=== PATIENT | female | born 1965 | race Hispanic/Latino ===

== ENCOUNTER → 2020-07-09 | Outpatient (CLI) | payer BC | END | disposition home or self-care (01) | LOC: RAH 09:40 | PROVIDERS: ATTEND Family Medicine | DX: Z12.31 Encounter for screening mammogram for malignant neoplasm of breast (principal); N64.89 Other specified disorders of breast | CPT/HCPCS: 77067 ==

== ENCOUNTER → 2022-10-17 | Outpatient (CLI) | payer OTHER | END | disposition home or self-care (01) | LOC: RAH 08:19 | PROVIDERS: ATTEND Family Medicine | DX: Z12.31 Encounter for screening mammogram for malignant neoplasm of breast (principal) | CPT/HCPCS: 77067 ==

== ENCOUNTER 2024-08-20 13:28 | Emergency (ER) | payer OTHER ==
[~2024-08-20] VITALS: Ht 147.3 cm; Wt 72.6 kg
[~2024-08-20 13:28] MED LIST: CYCL10TA16 PO; IBUP-2070 PO
[2024-08-20] MEDS: 0.9%NACL 1000ML 1,000 ML IV STA (14:26)
[2024-08-20] MEDS: FAMOTIDINE 20MG VIAL IV STA (14:26)
[2024-08-20] MEDS: DiphenhydrAMINE HCL 50 MG/ML VIAL IV STA (14:26)
[2024-08-20] MEDS: Solu-medROL 125MG VIAL IVP STA (14:27)
--- NOTE | 2024-08-20 14:35 | ERN ---
ED Note History of Present Illness Stated Complaint: INSECT BITE,RIGHT SIDE TINGLING,TROUBLE SWALLOWING Chief Complaint: Insect Bite Time Seen by MD: 13:39 Time Seen by Midlevel: 13:44 Dictation: 59-year-old female coming in with complaints of insect bite to the right 3rd digit. Patient states yesterday she woke up with that insect bite. States today he she feels like she is having trouble swallowing. She was able to follow her morning pills and eat a banana prior to arrival. And just wanted to be evaluated. Allergies: Coded Allergies: No Known Allergies (Unverified Allergy, Unknown, 03/25/24) Home Meds Active Scripts Cyclobenzaprine HCl (Flexeril) 10 Mg Tab, 10 MG PO TID for muscle sstiffness, #14 TAB 0 Refills Prov:GAUTAM LEE MD 03/26/24 Ibuprofen (Ibuprofen) 600 Mg Tablet, 600 MG PO Q6H PRN for PAIN, #15 TAB Prov:GAUTAM LEE MD 03/26/24 Past Medical History Past Medical History: Diabetes-Type II, Hypertension Surgical History: Appendectomy, Hysterectomy, Other Surgical History Other: COLON SX History: Not Applicable Review of System Dictation Constitutional: Negative for fever,chills, and weight loss Eyes: Negative for injury, pain,redness, and discharge ENT: Negative for injury,pain or swelling Cardiovascular: Negative for chest pain, palpitations, and edema Respiratory: Negative for shortness of breath, cough, and wheezing, Abdomen/GI: Negative for abdominal pain, nausea, vomiting, diarrhea, and constipation Back: Negative for injury and pain : Negative for injury, bleeding and discharge MS/Extremity: Negative for injury and deformity Skin: Negative for rash, and discoloration Neuro: Negative for headache, weakness, numbness, tingling, and seizure Psych: Negative for suicide ideation, homicidal ideation, and hallucinations Review of Systems: was completed Initial Vital Sign VS Vital Signs Date Time Temp Pulse Resp B/P (MAP) Pulse Ox O2 Delivery O2 Flow Rate FiO2 08/20/24 13:40 98.4 84 16 185/88 95 Room Air 0 08/20/24 13:46 21 Physical Exam Dictation General: awake, alert, NAD Head/Face: Normocephalic, atraumatic Eyes: PERRL, EOMI, vision at baseline ENT: oral cavity clear, TMs clear, no signs of infection Neck: Trachea midline, supple, no nuchal rigidity Cardiovascular: RRR, normal S1/S2, No MRGs, no JVD Respiratory: CTAB, no respiratory distress, No rales or wheezes Abdomen: Soft, non-tender, non-distended, normal bowel sounds, no guarding or rebound. Skin: Warm, dry, normal turgor, no rash insect bite noted to the base of the right 3rd digit MS/Extremity: Pulses equal, no cyanosis, neurovascular intact, FROM Neuro: COAx4, GCS 15, strength 5/5, CN 2-12 intact, normal cerebellar exam, normal gait, Psych: Normal behavior, mood, and affect normal ED Course ED Course Orders Procedure Category Date Status Time Methylprednisolone PHA 08/20/24 Complete Succ 125mg (Solu-Medr 14:00 Diphenhydramine Hcl PHA 08/20/24 Complete (Benadryl Inj) 14:00 Famotidine 20mg Vial PHA 08/20/24 Complete (Pepcid 20mg Vial) 14:00 0.9%Nacl 1000ml (Ns PHA 08/20/24 Complete 1000ml) 14:00 Current Medications Medications (Trade) Dose Ordered Sig/Candelario Route PRN Reason Start Time Stop Time Status Last Admin Dose Admin Diphenhydramine HCl (BENAdryl INJ) 25 mg ONCE STAT IV 08/20/24 14:00 08/20/24 14:03 DC 08/20/24 14:26 Famotidine (Pepcid 20mg Vial) 20 mg ONCE STAT IV 08/20/24 14:00 08/20/24 14:03 DC 08/20/24 14:26 Methylprednisolone Sodium Succinate (Solu-medROL 125MG) 125 mg ONCE STAT IVP 08/20/24 14:00 08/20/24 14:03 DC 08/20/24 14:27 Sodium Chloride 1,000 ml @ 1,000 mls/hr Q1H STAT IV 08/20/24 14:00 08/20/24 14:59 DC 08/20/24 14:26 Vital Signs Date Time Temp Pulse Resp B/P (MAP) Pulse Ox O2 Delivery O2 Flow Rate FiO2 08/20/24 15:32 98.4 80 16 157/74 97 Room Air* 0 21 08/20/24 13:46 98.4 84 16 185/88 95 Room Air* 0 21 08/20/24 13:40 98.4 84 16 185/88 95 Room Air 0 Medical Decision Making MDM MDM: 59-year-old female coming in with complaints of insect bite to the right 3rd digit. Patient states yesterday she woke up with that insect bite. States today he she feels like she is having trouble swallowing. She was able to follow her morning pills and eat a banana prior to arrival. And just wanted to be evaluated. After receiving Solu-Medrol, Benadryl, Pepcid and fluids patient states he feels much better and does not feel difficulty swallowing anymore. Discussed with the patient that I will discharge her with a steroid pack to take it home and follow up with PCP in 1-2 days and to return to the ER if symptoms worsen. Patient verbalized understanding, answered all questions. Differential diagnosis: Allergic reaction, cellulitis Rationale: Tests considered and ordered secondary to shared decision making include: Previous outside records reviewed: Old ER visits. Risk of complication and/or morbidity or mortality of patient management: None Medications-Per medication reconciliation Need for hospitalization: Patient does not meet criteria for hospitalization. Need for emergency major/minor surgery: No There are no social concerns with this patient. Prescription drug management Prescriptions will include symptomatic care Patient's prior external medical records from other ER visits were reviewed by me as indicated. Prior testing and results from previous visits were reviewed. Prior tests were taken into account with medical decision making and resource utilization, independent historian/historians were used to obtain complete medical history. I independently interpreted the test that were performed, results were reviewed by me and considered findings on radiology if ordered. Medical management and examination interpretation discussions were had by me with other qualified healthcare professionals as indicated for the patient's care. DX & DISP Disposition: Discharge Departure Impression: Primary Impression: Allergic reaction Additional Impression: Insect bite Condition: Stable Scripts Methylprednisolone (Medrol) 4 Mg Tab.ds.pk 1 TAB PO AD for 6 Days, #21 TAB 0 Refills 6 on day 1 then reduce by one tablet daily until gone Prov: JT JAY [employer] 08/20/24 Additional Instructions: Take the medications as prescribed. You can also take Benadryl as needed. R eturn to the ER if you have any worsening symptoms. Follow up with your PCP in 1-2 days. Referrals: SAMMIE CARTWRIGHT MD (PCP) Time of Disposition: 15:45 I have reviewed the case, and I agree with, Diagnosis and Plan JT JAY NP Aug 20, 2024 14:35
[2024-08-20 15:32] VITALS: BP 157/74; PULSE 80; RESP 16; TEMP 98.4; O2SAT 97
[2024-08-20] MEDS ORDERED: METH4TAB3 PO (15:46)
== END 2024-08-20 16:29 | disposition home or self-care (01) ==
LOC: EDH 13:28
DX: S60.462A Insect bite (nonvenomous) of right middle finger, initial encounter (principal); T78.40XA Allergy, unspecified, initial encounter; E11.9 Type 2 diabetes mellitus without complications; I10 Essential (primary) hypertension; Z90.49 Acquired absence of other specified parts of digestive tract; Z90.710 Acquired absence of both cervix and uterus; W57.XXXA Bitten or stung by nonvenomous insect and other nonvenomous arthropods, initial encounter
CPT/HCPCS: 99284; 96374; 96375; J2919; J1200; J3490